=== PATIENT | female | born 2000 | race African-American/Black ===

== ENCOUNTER 2021-08-26 00:39 | Emergency (ER) | payer OTHER ==
[~2021-08-26] VITALS: Ht 162.6 cm; Wt 61.7 kg
[~2021-08-26 00:39] MED LIST: MOBIC15 MG PO; SUDOGEST30 MG PO; TESSALON PERLE100 MG PO
[2021-08-26 00:40] VITALS: BP 127/70
[2021-08-26] MEDS ORDERED: NOHOMEMEDICATIONS (00:45)
== END 2021-08-26 05:48 | disposition home or self-care (01) ==
LOC: ER 00:39
DX: S61.307A Unspecified open wound of left little finger with damage to nail, initial encounter (principal); X58.XXXA Exposure to other specified factors, initial encounter; Y93.89 Activity, other specified; Y92.89 Other specified places as the place of occurrence of the external cause; Y99.8 Other external cause status